=== PATIENT | female | born 1935 | race Hispanic/Latino ===

== ENCOUNTER → 2019-07-30 | Day surgery (SDC) | payer MEDICARE, OTHER ==
[2019-07-26 09:30] LABS: BASOPHILS % 0.6 % (0.0-1.0); EOSINOPHILS # (AUTO) 0.2 (0.0-0.4); EOSINOPHILS % 2.9 % (0.0-6.0); LYMPHOCYTES # (AUTO) 2.5 (1.0-3.2); MEAN CORPUSCULAR HEMOGLOBIN 29.4 pg (28-32); MEAN CORPUSCULAR HGB CONC 33.3 g/dL (31-35); MEAN CORPUSCULAR VOLUME 88.2 fL (81-99); MONOCYTES # (AUTO) 0.9 (0.2-0.8); MONOCYTES % 12.6 % (4.4-11.3); NEUTROPHILS # (AUTO) 3.3 (2.1-6.9); NEUTROPHILS % 46.9 % (38.7-80.0); PLATELET COUNT 174 x10e3/uL (140-360); RED BLOOD COUNT 4.76 x10e6/uL (3.6-5.1)
[~2019-07-30] MED LIST: BRILINTA90 MG PO; CARVEDILOL12.5 MG PO; GLIPIZIDE-METF1 EACH PO; NITROGLYCERIN0.4 MG SL; VASCEPA1 GM PO; VITAMIN B122500 MCG INJ
[2019-07-30 10:30] VITALS: BP 140/68
--- OUTSIDE RECORDS SUMMARY | 2019-08-02 13:10 | XMS REPORT ---
[facility] Address Unknown Phone Unavailable Care Team Providers [employer] Name Role Phone HAYLEE LOGAN Unavailable Unavailable Problems This patient has no known problems. Allergies, Adverse Reactions, Alerts This patient has no known allergies or adverse reactions. Medications This patient has no known medications. Results Test Description Test Time Test Comments Text Results Atomic Results Result Comments POCT-GLUCOSE METER 2019-04-21 12:30:00 POC-GLUCOSE METER (BEAKER) (test rxay=4948) 277 mg/dL 70-110 TESTED AT [address] [address] POCT-GLUCOSE [id number] 08:24:00* Test Item Value Reference Range Comments POC-GLUCOSE METER (BEAKER) (test rbnt=4135) 180 mg/dL 70-110 TESTED AT [place] [id number] [facility] [address] [id number] 07:21:00* Test Item Value Reference Range Comments PHOSPHORUS (BEAKER) (test ihlg=862) 2.7 mg/dL 2.3-4.7 [id number] 07:21:00* Test Item Value Reference Range Comments MAGNESIUM (BEAKER) (test fagz=311) 2.2 mg/dL 1.6-2.6 BASIC METABOLIC [id number] 07:21:00* Test Item Value Reference Range Comments SODIUM (BEAKER) (test jusx=506) 133 meq/L 136-145 POTASSIUM (BEAKER) (test rtlg=653) 3.8 meq/L 3.5-5.1 CHLORIDE (BEAKER) (test zkqi=783) 101 meq/L 98-107 CO2 (BEAKER) (test trgf=377) 25 meq/L 22-29 BLOOD UREA NITROGEN (BEAKER) (test bwet=665) 13 mg/dL 7-21 CREATININE (BEAKER) (test vvji=447) 0.67 mg/dL 0.57-1.25 GLUCOSE RANDOM (BEAKER) (test odxw=233) 205 mg/dL 70-105 CALCIUM (BEAKER) (test tihy=792) 8.7 mg/dL 8.4-10.2 EGFR (BEAKER) (test qxrf=8253) 84 mL/min/1.73 sq m ESTIMATED GFR IS NOT ACCURATE CREATININE CLEARANCE IN PREDICTING GLOMERULAR FILTRATION RATE. ESTIMATED GFR IS NOT APPLICABLE FOR DIALYSIS PATIENTS. PT/[id number] 07:13:00* Test Item Value Reference Range Comments PROTIME (BEAKER) (test xfkw=745) 13.7 seconds 11.9-14.2 INR (BEAKER) (test vorw=292) 1.1 <=5.9 PARTIAL THROMBOPLASTIN TIME (BEAKER) (test zwsr=319) 27.8 seconds 22.5-36.0 This is a corrected result. Previous result was 37.7 seconds on 04/21/2019 at 0623 CDT Effective 01/09/2019: PT Reference Range ChangeNew: 11.9-14.2 Previous: 11.7-14. 7RECOMMENDED COUMADIN/WARFARIN INR THERAPY RANGESSTANDARD DOSE: 2.0-3.0 Include s: PROPHYLAXIS for venous thrombosis, systemic embolization; TREATMENT for venou s thrombosis and/or pulmonary embolus.HIGH RISK: Target INR is 2.5-3.5 for patie nts wiht mechanical heart valves.CALCIUM, [id number] 06:48:00* Test Item Value Reference Range Comments CALCIUM IONIZED (BEAKER) (test rddy=075) 1.07 mmol/L 1.12-1.27 PH, BLOOD (BEAKER) (test docn=5426) 7.44 PROTHROMBIN [id number] 06:22:00* Test Item Value Reference Range Comments PROTIME (BEAKER) (test yhnr=982) 13.7 seconds 11.9-14.2 INR (BEAKER) (test ofef=555) 1.1 <=5.9 Effective 01/09/2019: PT Reference Range ChangeNew: 11.9-14.2 Previous: 11.7-14. 7RECOMMENDED COUMADIN/WARFARIN INR THERAPY RANGESSTANDARD DOSE: 2.0-3.0 Include s: PROPHYLAXIS for venous thrombosis, systemic embolization; TREATMENT for venou s thrombosis and/or pulmonary embolus.HIGH RISK: Target INR is 2.5-3.5 for patie nts wiht mechanical heart valves.CBC W/PLT COUNT & AUTO [id number] 06:07:00* Test Item Value Reference Range Comments WHITE BLOOD CELL COUNT (BEAKER) (test dqpf=852) 6.4 K/ L 3.5-10.5 RED BLOOD CELL COUNT (BEAKER) (test hkfe=540) 3.45 M/ L 3.93-5.22 HEMOGLOBIN (BEAKER) (test zaqa=406) 10.9 GM/DL 11.2-15.7 HEMATOCRIT (BEAKER) (test kvhu=791) 31.2 % 34.1-44.9 MEAN CORPUSCULAR VOLUME (BEAKER) (test pmes=361) 90.4 fL 79.4-94.8 MEAN CORPUSCULAR HEMOGLOBIN (BEAKER) (test voop=264) 31.6 pg 25.6-32.2 MEAN CORPUSCULAR HEMOGLOBIN CONC (BEAKER) (test qnky=253) 34.9 GM/DL 32.2-35.5 RED CELL DISTRIBUTION WIDTH (BEAKER) (test pdch=305) 12.2 % 11.7-14.4 PLATELET COUNT (BEAKER) (test vtmz=584) 184 K/CU MM 150-450 MEAN PLATELET VOLUME (BEAKER) (test bzxp=341) 10.8 fL 9.4-12.3 NUCLEATED RED BLOOD CELLS (BEAKER) (test jhfe=171) 0 /100 WBC 0-0 NEUTROPHILS RELATIVE PERCENT (BEAKER) (test cehh=537) 62 % LYMPHOCYTES RELATIVE PERCENT (BEAKER) (test bugh=804) 21 % MONOCYTES RELATIVE PERCENT (BEAKER) (test jplh=382) 15 % EOSINOPHILS RELATIVE PERCENT (BEAKER) (test irhf=002) 2 % BASOPHILS RELATIVE PERCENT (BEAKER) (test ajpd=261) 0 % NEUTROPHILS ABSOLUTE COUNT (BEAKER) (test scix=131) 3.92 K/ L 1.56-6.13 LYMPHOCYTES ABSOLUTE COUNT (BEAKER) (test zlgb=423) 1.31 K/ L 1.18-3.74 MONOCYTES ABSOLUTE COUNT (BEAKER) (test ksnf=806) 0.93 K/ L 0.24-0.36 EOSINOPHILS ABSOLUTE COUNT (BEAKER) (test debq=870) 0.13 K/ L 0.04-0.36 BASOPHILS ABSOLUTE COUNT (BEAKER) (test wksy=102) 0.02 K/ L 0.01-0.08 IMMATURE GRANULOCYTES-RELATIVE PERCENT (BEAKER) (test ygqi=6719) 1 % 0-1 POCT-GLUCOSE [id number] 22:00:00* Test Item Value Reference Range Comments POC-GLUCOSE METER (BEAKER) (test vqko=5329) 208 mg/dL 70-110 TESTED AT [address] [address] POCT-GLUCOSE [id number] 17:42:00* Test Item Value Reference Range Comments POC-GLUCOSE METER (BEAKER) (test cwma=8460) 237 mg/dL 70-110 TESTED AT [address] [address] POCT-GLUCOSE [id number] 12:36:00* Test Item Value Reference Range Comments POC-GLUCOSE METER (BEAKER) (test ojfy=2136) 161 mg/dL 70-110 TESTED AT [address] [address] POCT-GLUCOSE [id number] 07:23:00* Test Item Value Reference Range Comments POC-GLUCOSE METER (BEAKER) (test kfkt=5260) 163 mg/dL 70-110 TESTED AT [address] [address] TSH/FREE T4 IF [id number] 05:44:00* Test Item Value Reference Range Comments THYROID STIMULATING HORMONE (BEAKER) (test zttn=265) 1.25 uIU/mL 0.35-4.94 [id number] 05:19:00* Test Item Value Reference Range Comments PHOSPHORUS (BEAKER) (test prtt=301) 2.5 mg/dL 2.3-4.7 [id number] 05:19:00* Test Item Value Reference Range Comments MAGNESIUM (BEAKER) (test dgbt=278) 2.1 mg/dL 1.6-2.6 BASIC METABOLIC [id number] 05:19:00* Test Item Value Reference Range Comments SODIUM (BEAKER) (test xvbt=059) 134 meq/L 136-145 POTASSIUM (BEAKER) (test cxlf=383) 4.2 meq/L 3.5-5.1 CHLORIDE (BEAKER) (test tpbs=356) 104 meq/L 98-107 CO2 (BEAKER) (test ddbg=013) 23 meq/L 22-29 BLOOD UREA NITROGEN (BEAKER) (test jaar=396) 12 mg/dL 7-21 CREATININE (BEAKER) (test ucxg=790) 0.64 mg/dL 0.57-1.25 GLUCOSE RANDOM (BEAKER) (test icsp=708) 168 mg/dL 70-105 CALCIUM (BEAKER) (test qzps=295) 8.5 mg/dL 8.4-10.2 EGFR (BEAKER) (test wdvg=0563) 89 mL/min/1.73 sq m ESTIMATED GFR IS NOT ACCURATE CREATININE CLEARANCE IN PREDICTING GLOMERULAR FILTRATION RATE. ESTIMATED GFR IS NOT APPLICABLE FOR DIALYSIS PATIENTS. PT/[id number] 05:13:00* Test Item Value Reference Range Comments PROTIME (BEAKER) (test qydw=864) 13.3 seconds 11.9-14.2 INR (BEAKER) (test atry=617) 1.1 <=5.9 PARTIAL THROMBOPLASTIN TIME (BEAKER) (test olug=577) 28.8 seconds 22.5-36.0 Effective 01/09/2019: PT Reference Range ChangeNew: 11.9-14.2 Previous: 11.7-14. 7RECOMMENDED COUMADIN/WARFARIN INR THERAPY RANGESSTANDARD DOSE: 2.0-3.0 Include s: PROPHYLAXIS for venous thrombosis, systemic embolization; TREATMENT for venou s thrombosis and/or pulmonary embolus.HIGH RISK: Target INR is 2.5-3.5 for patie nts wiht mechanical heart valves.PROTHROMBIN [id number] 05:12:00* Test Item Value Reference Range Comments PROTIME (BEAKER) (test tvmx=138) 13.3 seconds 11.9-14.2 INR (BEAKER) (test sdcq=359) 1.1 <=5.9 Effective 01/09/2019: PT Reference Range ChangeNew: 11.9-14.2 Previous: 11.7-14. 7RECOMMENDED COUMADIN/WARFARIN INR THERAPY RANGESSTANDARD DOSE: 2.0-3.0 Include s: PROPHYLAXIS for venous thrombosis, systemic embolization; TREATMENT for venou s thrombosis and/or pulmonary embolus.HIGH RISK: Target INR is 2.5-3.5 for patie nts wiht mechanical heart valves.CBC W/PLT COUNT & AUTO [id number] 04:57:00* Test Item Value Reference Range Comments WHITE BLOOD CELL COUNT (BEAKER) (test hlbi=063) 7.1 K/ L 3.5-10.5 RED BLOOD CELL COUNT (BEAKER) (test dlgh=626) 3.41 M/ L 3.93-5.22 HEMOGLOBIN (BEAKER) (test wyir=072) 10.5 GM/DL 11.2-15.7 HEMATOCRIT (BEAKER) (test odju=723) 31.5 % 34.1-44.9 MEAN CORPUSCULAR VOLUME (BEAKER) (test flcj=629) 92.4 fL 79.4-94.8 MEAN CORPUSCULAR HEMOGLOBIN (BEAKER) (test hxmu=165) 30.8 pg 25.6-32.2 MEAN CORPUSCULAR HEMOGLOBIN CONC (BEAKER) (test yrrm=768) 33.3 GM/DL 32.2-35.5 RED CELL DISTRIBUTION WIDTH (BEAKER) (test tclc=578) 12.4 % 11.7-14.4 PLATELET COUNT (BEAKER) (test qyly=839) 184 K/CU MM 150-450 MEAN PLATELET VOLUME (BEAKER) (test roth=672) 10.6 fL 9.4-12.3 NUCLEATED RED BLOOD CELLS (BEAKER) (test coiv=736) 0 /100 WBC 0-0 NEUTROPHILS RELATIVE PERCENT (BEAKER) (test qabq=565) 60 % LYMPHOCYTES RELATIVE PERCENT (BEAKER) (test jikf=333) 25 % MONOCYTES RELATIVE PERCENT (BEAKER) (test udni=762) 13 % EOSINOPHILS RELATIVE PERCENT (BEAKER) (test wvir=428) 1 % BASOPHILS RELATIVE PERCENT (BEAKER) (test rzai=868) 0 % NEUTROPHILS ABSOLUTE COUNT (BEAKER) (test vgfn=097) 4.26 K/ L 1.56-6.13 LYMPHOCYTES ABSOLUTE COUNT (BEAKER) (test egaj=531) 1.78 K/ L 1.18-3.74 MONOCYTES ABSOLUTE COUNT (BEAKER) (test wuzq=844) 0.89 K/ L 0.24-0.36 EOSINOPHILS ABSOLUTE COUNT (BEAKER) (test wnot=532) 0.10 K/ L 0.04-0.36 BASOPHILS ABSOLUTE COUNT (BEAKER) (test uvej=359) 0.02 K/ L 0.01-0.08 IMMATURE GRANULOCYTES-RELATIVE PERCENT (BEAKER) (test vhne=3513) 1 % 0-1 CALCIUM, [id number] 04:47:00* Test Item Value Reference Range Comments CALCIUM IONIZED (BEAKER) (test dunv=183) 1.18 mmol/L 1.12-1.27 PH, BLOOD (BEAKER) (test gpux=7959) 7.41 POCT-GLUCOSE [id number] 22:19:00* Test Item Value Reference Range Comments POC-GLUCOSE METER (BEAKER) (test imrz=2818) 174 mg/dL 70-110 TESTED AT [address] [address] HEMOGLOBIN AND [id number] 21:06:00* Test Item Value Reference Range Comments HEMOGLOBIN (BEAKER) (test pcmg=092) 10.5 GM/DL 11.2-15.7 HEMATOCRIT (BEAKER) (test scwd=361) 31.4 % 34.1-44.9 POCT-GLUCOSE [id number] 16:32:00* Test Item Value Reference Range Comments POC-GLUCOSE METER (BEAKER) (test hrqg=2556) 182 mg/dL 70-110 TESTED AT [address] [address] HEMOGLOBIN AND [id number] 16:30:00* Test Item Value Reference Range Comments HEMOGLOBIN (BEAKER) (test tiji=290) 10.4 GM/DL 11.2-15.7 HEMATOCRIT (BEAKER) (test qwte=676) 31.2 % 34.1-44.9 HEMOGLOBIN [id number] 14:19:00* Test Item Value Reference Range Comments HEMOGLOBIN A1C (BEAKER) (test pjyw=464) 6.9 % 4.3-6.1 POCT-GLUCOSE [id number] 12:15:00* Test Item Value Reference Range Comments POC-GLUCOSE METER (BEAKER) (test hcjg=9186) 185 mg/dL 70-110 TESTED AT [address] [address] HEMOGLOBIN AND [id number] 10:19:00* Test Item Value Reference Range Comments HEMOGLOBIN (BEAKER) (test gepm=476) 10.0 GM/DL 11.2-15.7 HEMATOCRIT (BEAKER) (test ufdz=695) 30.2 % 34.1-44.9 BASIC METABOLIC [id number] 08:33:00* Test Item Value Reference Range Comments SODIUM (BEAKER) (test jitw=963) 137 meq/L 136-145 POTASSIUM (BEAKER) (test mwms=031) 3.4 meq/L 3.5-5.1 CHLORIDE (BEAKER) (test ldjf=741) 110 meq/L 98-107 CO2 (BEAKER) (test fkpk=544) 21 meq/L 22-29 BLOOD UREA NITROGEN (BEAKER) (test ddrc=336) 15 mg/dL 7-21 CREATININE (BEAKER) (test oxma=740) 0.64 mg/dL 0.57-1.25 GLUCOSE RANDOM (BEAKER) (test sdyu=548) 135 mg/dL 70-105 CALCIUM (BEAKER) (test hyei=802) 7.5 mg/dL 8.4-10.2 EGFR (BEAKER) (test gggk=0942) 89 mL/min/1.73 sq m ESTIMATED GFR IS NOT ACCURATE CREATININE CLEARANCE IN PREDICTING GLOMERULAR FILTRATION RATE. ESTIMATED GFR IS NOT APPLICABLE FOR DIALYSIS PATIENTS. [id number] 08:28:00* Test Item Value Reference Range Comments PHOSPHORUS (BEAKER) (test twtc=113) 3.5 mg/dL 2.3-4.7 [id number] 08:28:00* Test Item Value Reference Range Comments MAGNESIUM (BEAKER) (test bocp=263) 1.9 mg/dL 1.6-2.6 POCT-GLUCOSE [id number] 08:19:00* Test Item Value Reference Range Comments POC-GLUCOSE METER (BEAKER) (test dhra=6626) 138 mg/dL 70-110 TESTED AT [facility] [address] [facility] [address] PROTHROMBIN [id number] 06:40:00* Test Item Value Reference Range Comments PROTIME (BEAKER) (test boln=744) 13.6 seconds 11.9-14.2 INR (BEAKER) (test yaxd=106) 1.1 <=5.9 Effective 01/09/2019: PT Reference Range ChangeNew: 11.9-14.2 Previous: 11.7-14. 7RECOMMENDED COUMADIN/WARFARIN INR THERAPY RANGESSTANDARD DOSE: 2.0-3.0 Include s: PROPHYLAXIS for venous thrombosis, systemic embolization; TREATMENT for venou s thrombosis and/or pulmonary embolus.HIGH RISK: Target INR is 2.5-3.5 for patie [facility] wi mechanical heart valves.PT/[id number] 06:40:00* Test Item Value Reference Range Comments PROTIME (BEAKER) (test zljv=639) 13.6 seconds 11.9-14.2 INR (BEAKER) (test mjfx=213) 1.1 <=5.9 PARTIAL THROMBOPLASTIN TIME (BEAKER) (test kfih=700) 26.7 seconds 22.5-36.0 Effective 01/09/2019: PT Reference Range ChangeNew: 11.9-14.2 Previous: 11.7-14. 7RECOMMENDED COUMADIN/WARFARIN INR THERAPY RANGESSTANDARD DOSE: 2.0-3.0 Include s: PROPHYLAXIS for venous thrombosis, systemic embolization; TREATMENT for venou s thrombosis and/or pulmonary embolus.HIGH RISK: Target INR is 2.5-3.5 for patie [facility] mechanical heart valves.CBC W/PLT COUNT & AUTO [id number] 06:28:00* Test Item Value Reference Range Comments WHITE BLOOD CELL COUNT (BEAKER) (test hwfj=363) 6.1 K/ L 3.5-10.5 RED BLOOD CELL COUNT (BEAKER) (test wyaz=210) 3.41 M/ L 3.93-5.22 HEMOGLOBIN (BEAKER) (test gcoq=239) 10.3 GM/DL 11.2-15.7 HEMATOCRIT (BEAKER) (test zcdt=428) 32.1 % 34.1-44.9 MEAN CORPUSCULAR VOLUME (BEAKER) (test orye=054) 94.1 fL 79.4-94.8 MEAN CORPUSCULAR HEMOGLOBIN (BEAKER) (test alnc=167) 30.2 pg 25.6-32.2 MEAN CORPUSCULAR HEMOGLOBIN CONC (BEAKER) (test ejqc=424) 32.1 GM/DL 32.2-35.5 RED CELL DISTRIBUTION WIDTH (BEAKER) (test hhzc=876) 12.5 % 11.7-14.4 PLATELET COUNT (BEAKER) (test fswl=565) 205 K/CU MM 150-450 MEAN PLATELET VOLUME (BEAKER) (test plod=954) 10.7 fL 9.4-12.3 NUCLEATED RED BLOOD CELLS (BEAKER) (test uonx=714) 0 /100 WBC 0-0 NEUTROPHILS RELATIVE PERCENT (BEAKER) (test uebe=644) 62 % LYMPHOCYTES RELATIVE PERCENT (BEAKER) (test lgtz=888) 23 % MONOCYTES RELATIVE PERCENT (BEAKER) (test wfdx=019) 13 % EOSINOPHILS RELATIVE PERCENT (BEAKER) (test nikc=900) 1 % BASOPHILS RELATIVE PERCENT (BEAKER) (test pqkk=717) 0 % NEUTROPHILS ABSOLUTE COUNT (BEAKER) (test ofrr=747) 3.74 K/ L 1.56-6.13 LYMPHOCYTES ABSOLUTE COUNT (BEAKER) (test ufpr=280) 1.41 K/ L 1.18-3.74 MONOCYTES ABSOLUTE COUNT (BEAKER) (test sabd=942) 0.81 K/ L 0.24-0.36 EOSINOPHILS ABSOLUTE COUNT (BEAKER) (test tzcp=718) 0.04 K/ L 0.04-0.36 BASOPHILS ABSOLUTE COUNT (BEAKER) (test mhag=185) 0.02 K/ L 0.01-0.08 IMMATURE GRANULOCYTES-RELATIVE PERCENT (BEAKER) (test qjky=7530) 1 % 0-1 CALCIUM, [id number] 06:06:00* Test Item Value Reference Range Comments CALCIUM IONIZED (BEAKER) (test bfwm=926) 1.10 mmol/L 1.12-1.27 PH, BLOOD (BEAKER) (test drgu=0913) 7.33 CBC W/PLT COUNT & AUTO [id number] 00:24:00* Test Item Value Reference Range Comments WHITE BLOOD CELL COUNT (BEAKER) (test fneq=633) 7.7 K/ L 3.5-10.5 RED BLOOD CELL COUNT (BEAKER) (test amny=365) 3.51 M/ L 3.93-5.22 HEMOGLOBIN (BEAKER) (test nynb=606) 11.1 GM/DL 11.2-15.7 HEMATOCRIT (BEAKER) (test ocif=911) 32.5 % 34.1-44.9 MEAN CORPUSCULAR VOLUME (BEAKER) (test jtas=531) 92.6 fL 79.4-94.8 MEAN CORPUSCULAR HEMOGLOBIN (BEAKER) (test mwyz=874) 31.6 pg 25.6-32.2 MEAN CORPUSCULAR HEMOGLOBIN CONC (BEAKER) (test viff=143) 34.2 GM/DL 32.2-35.5 RED CELL DISTRIBUTION WIDTH (BEAKER) (test fljz=099) 12.3 % 11.7-14.4 PLATELET COUNT (BEAKER) (test vqbi=949) 218 K/CU MM 150-450 MEAN PLATELET VOLUME (BEAKER) (test nlko=112) 10.3 fL 9.4-12.3 NUCLEATED RED BLOOD CELLS (BEAKER) (test ywsg=063) 0 /100 WBC 0-0 NEUTROPHILS RELATIVE PERCENT (BEAKER) (test yfvx=272) 68 % LYMPHOCYTES RELATIVE PERCENT (BEAKER) (test yqys=281) 18 % MONOCYTES RELATIVE PERCENT (BEAKER) (test nqgt=125) 13 % EOSINOPHILS RELATIVE PERCENT (BEAKER) (test zsra=694) 0 % BASOPHILS RELATIVE PERCENT (BEAKER) (test bkkp=353) 0 % NEUTROPHILS ABSOLUTE COUNT (BEAKER) (test vdlu=430) 5.24 K/ L 1.56-6.13 LYMPHOCYTES ABSOLUTE COUNT (BEAKER) (test urqv=823) 1.37 K/ L 1.18-3.74 MONOCYTES ABSOLUTE COUNT (BEAKER) (test lxmz=757) 0.99 K/ L 0.24-0.36 EOSINOPHILS ABSOLUTE COUNT (BEAKER) (test rqad=829) 0.02 K/ L 0.04-0.36 BASOPHILS ABSOLUTE COUNT (BEAKER) (test opml=193) 0.02 K/ L 0.01-0.08 IMMATURE GRANULOCYTES-RELATIVE PERCENT (BEAKER) (test zfpb=5218) 1 % 0-1 POCT-GLUCOSE [id number] 00:20:00* Test Item Value Reference Range Comments POC-GLUCOSE METER (BEAKER) (test hlii=4907) 184 mg/dL 70-110 TESTED AT [facility] [address] [facility] [address] CBC (HEMOGRAM ONLY)2019-04-18 17:13:00* Test Item Value Reference Range Comments WHITE BLOOD CELL COUNT (BEAKER) (test tfgl=851) 6.0 K/ L 3.5-10.5 RED BLOOD CELL COUNT (BEAKER) (test jhde=414) 3.68 M/ L 3.93-5.22 HEMOGLOBIN (BEAKER) (test dyxi=209) 11.2 GM/DL 11.2-15.7 HEMATOCRIT (BEAKER) (test wqhv=798) 34.6 % 34.1-44.9 MEAN CORPUSCULAR VOLUME (BEAKER) (test npsr=833) 94.0 fL 79.4-94.8 MEAN CORPUSCULAR HEMOGLOBIN (BEAKER) (test vobe=843) 30.4 pg 25.6-32.2 MEAN CORPUSCULAR HEMOGLOBIN CONC (BEAKER) (test rdvr=186) 32.4 GM/DL 32.2-35.5 RED CELL DISTRIBUTION WIDTH (BEAKER) (test ujxy=561) 12.2 % 11.7-14.4 PLATELET COUNT (BEAKER) (test syga=247) 200 K/CU MM 150-450 MEAN PLATELET VOLUME (BEAKER) (test oazr=027) 11.3 fL 9.4-12.3 NUCLEATED RED BLOOD CELLS (BEAKER) (test tieq=021) 0 /100 WBC 0-0 CT, [id number] 16:48:00FINAL REPORT CT scan of the abdomen and pelvis. MEDICAL HISTORY: Rule out retroperitoneal bleed. COMPARISON STUDY: None available. TECHNIQUE: Contiguous helical slices were acquired through the abdomen and pelvis without the administration of oral or intravenous contrast. This exam was performed according to our department dose optimization program which includes automated exposure control, adjustment of the mA and/or kV according to the patient's size and/or use of iterative reconstruction technique. FINDINGS:Two tiny nodules are seen in the right middle lobe each measuring 3 mm in size. Atelectasis or consolidation is seen in the lingula. There is a 3 mm nodule in the left lower lobe on image one. A 3 mm nodule is seen in the right lower lobe on image 4. The abdomen and pelvis are limited by lack of contrast. The liver, spleen, pancreas, and adrenal glands are unremarkable. No renal abnormality is seen. Cholelithiasis noted with no biliary dilatation. There is a large right-sided retroperitoneal hematoma measuring 12.8 x 6.3 cm in maximal transverse diameter. It extends towards the pelvis where it measures 11.9 x 4.0 cm. A Rivers catheter is present the bladder measures contrast in the collecting system. No dilated loops of bowel are seen to suggest obstruction. Diverticulosis is noted without evidence of diverticulitis. The aorta is normal in caliber. Atherosclerosis is seen. There is no suspicious adenopathy. Bone windows demonstrate degenerative changes. IMPRESSION:1. Multiple punctate nodules in the lung bases. No imaging follow-up is needed in a low-risk patient.2. Cholelithiasis.3. Large right-sided retroperitoneal hematoma tracking towards the pelvis.4. Study limited by lack of contrast.5. Diverticu losis. A verbal report was given to Dr. Logan at the time of dictation. Signed: Pedro Barajas MDReport Verified Date/Time: 04/18/2019 16:48:23 Reading Locatio n: H B1 C013X Ortho Consult Reading Room GLOBIN AND [id number] 15:10:00* Test Item Value Reference Range Comments HEMOGLOBIN (BEAKER) (test kccl=275) 11.2 GM/DL 11.2-15.7 HEMATOCRIT (BEAKER) (test qxnn=402) 33.8 % 34.1-44.9 [id number] 14:03:00* Test Item Value Reference Range Comments ACTIVATED CLOTTING TIME (BEAKER) (test jciy=042) 219 sec Reference Range: 74-137 seconds, Baseline/TESTED AT [facility] [address] [facility] [address] BASIC METABOLIC [id number] 10:33:00* Test Item Value Reference Range Comments SODIUM (BEAKER) (test uiop=946) 134 meq/L 136-145 POTASSIUM (BEAKER) (test xnnw=126) 4.6 meq/L 3.5-5.1 CHLORIDE (BEAKER) (test zejd=968) 98 meq/L 98-107 CO2 (BEAKER) (test uzhs=432) 28 meq/L 22-29 BLOOD UREA NITROGEN (BEAKER) (test ddel=531) 16 mg/dL 7-21 CREATININE (BEAKER) (test mgqp=111) 0.84 mg/dL 0.57-1.25 GLUCOSE RANDOM (BEAKER) (test zzvj=279) 188 mg/dL 70-105 CALCIUM (BEAKER) (test gbur=071) 9.7 mg/dL 8.4-10.2 EGFR (BEAKER) (test held=3176) 65 mL/min/1.73 sq m ESTIMATED GFR IS NOT ACCURATE CREATININE CLEARANCE IN PREDICTING GLOMERULAR FILTRATION RATE. ESTIMATED GFR IS NOT APPLICABLE FOR DIALYSIS PATIENTS. CBC W/PLT COUNT & AUTO [id number] 10:10:00* Test Item Value Reference Range Comments WHITE BLOOD CELL COUNT (BEAKER) (test ltaf=135) 4.6 K/ L 3.5-10.5 RED BLOOD CELL COUNT (BEAKER) (test qkup=583) 4.50 M/ L 3.93-5.22 HEMOGLOBIN (BEAKER) (test kwgy=939) 13.8 GM/DL 11.2-15.7 HEMATOCRIT (BEAKER) (test xejp=262) 41.4 % 34.1-44.9 MEAN CORPUSCULAR VOLUME (BEAKER) (test gepb=686) 92.0 fL 79.4-94.8 MEAN CORPUSCULAR HEMOGLOBIN (BEAKER) (test jbyo=726) 30.7 pg 25.6-32.2 MEAN CORPUSCULAR HEMOGLOBIN CONC (BEAKER) (test imda=067) 33.3 GM/DL 32.2-35.5 RED CELL DISTRIBUTION WIDTH (BEAKER) (test redv=403) 12.2 % 11.7-14.4 PLATELET COUNT (BEAKER) (test hpsb=557) 199 K/CU MM 150-450 MEAN PLATELET VOLUME (BEAKER) (test qmlh=694) 10.7 fL 9.4-12.3 NUCLEATED RED BLOOD CELLS (BEAKER) (test ectq=040) 0 /100 WBC 0-0 NEUTROPHILS RELATIVE PERCENT (BEAKER) (test cxoe=733) 49 % LYMPHOCYTES RELATIVE PERCENT (BEAKER) (test vasp=322) 37 % MONOCYTES RELATIVE PERCENT (BEAKER) (test lkvu=848) 11 % EOSINOPHILS RELATIVE PERCENT (BEAKER) (test pimx=474) 3 % BASOPHILS RELATIVE PERCENT (BEAKER) (test cvaf=496) 0 % NEUTROPHILS ABSOLUTE COUNT (BEAKER) (test esam=070) 2.22 K/ L 1.56-6.13 LYMPHOCYTES ABSOLUTE COUNT (BEAKER) (test cfgl=346) 1.66 K/ L 1.18-3.74 MONOCYTES ABSOLUTE COUNT (BEAKER) (test mrom=411) 0.50 K/ L 0.24-0.36 EOSINOPHILS ABSOLUTE COUNT (BEAKER) (test qibt=209) 0.12 K/ L 0.04-0.36 BASOPHILS ABSOLUTE COUNT (BEAKER) (test sile=410) 0.02 K/ L 0.01-0.08 IMMATURE GRANULOCYTES-RELATIVE PERCENT (BEAKER) (test jswz=1480) 1 % 0-1 SCR MAMM BILATERAL LARRY CAD [id number] 13:33:01 - SCR MAMM BILATERAL LARRY CAD DIGITALBILATERAL DIGITAL SCREENING MAMMOGRAM 3D/2D WITH CAD: 03/29/2019CLINICAL: Asymptomatic. Digital breast tomosynthesis was performed in addition to routine CC and MLO views. Current mammographic images were evaluated by either a [employer] M-Vu or a [employer] ImageChecker CAD (computer aided detection system). Comparison is made to exam dated 04/05/2018 mammogram - [facility]-. There are scattered fibroglandular tissues in both breasts. There is vascular calcification in both breasts. There also is a shantelle gn calcification in the right breast and there are benign calcifications in the left breast. No suspicious mass, architectural distortion, malignant type calci fication, or lymph node abnormality detected. Breast architecture is stable com pared to prior exams.IMPRESSION: BENIGNThere is no mammographic evidence of estefania gnancy. Resume annual screening mammography in one year. Arie Villeda M.D. rb/:04/01/2019 13:33:01 [place] Former: Shahida Anaya MM, [facility]: BIRADS 1-2 Normal Mammogram BI-RADS: 2 Benign
== END | disposition home or self-care (01) ==
LOC: OR 07:05
PROVIDERS: ATTEND Internal Medicine Gastroenterology
DX: Z12.11 Encounter for screening for malignant neoplasm of colon (principal); D12.0 Benign neoplasm of cecum; K29.50 Unspecified chronic gastritis without bleeding; K29.60 Other gastritis without bleeding; K29.80 Duodenitis without bleeding; K21.0 Gastro-esophageal reflux disease with esophagitis; K59.00 Constipation, unspecified; K57.30 Diverticulosis of large intestine without perforation or abscess without bleeding; K64.8 Other hemorrhoids; K44.9 Diaphragmatic hernia without obstruction or gangrene; I25.10 Atherosclerotic heart disease of native coronary artery without angina pectoris; E11.9 Type 2 diabetes mellitus without complications; E78.5 Hyperlipidemia, unspecified; I10 Essential (primary) hypertension; M19.90 Unspecified osteoarthritis, unspecified site; Z88.0 Allergy status to penicillin; Z01.810 Encounter for preprocedural cardiovascular examination; Z01.812 Encounter for preprocedural laboratory examination; Z79.84 Long term (current) use of oral hypoglycemic drugs; Z79.82 Long term (current) use of aspirin; Z79.02 Long term (current) use of antithrombotics/antiplatelets; Z87.19 Personal history of other diseases of the digestive system
CPT/HCPCS: 36415; 43239; 44391; 45378; 45384; 45385; 82948; 85025; 88305; 88312; 93005